=== PATIENT | male | born 1990 ===

== ENCOUNTER 2021-10-01 01:11 | Inpatient (IN) | payer SELFPAY ==
[2021-10-01] VITALS (17 sets, daily range): BP systolic 107–229; BP diastolic 67–127
[~2021-10-01] VITALS: Ht 165 cm; Wt 73.2 kg
[2021-10-01] MEDS ORDERED: LACTATED RINGERS 1,000 ML IV ONE (02:00)
[2021-10-01] MEDS ORDERED: KETOROLAC 30 MG/ML VIAL IVP ONE (02:00)
--- NOTE | 2021-10-01 02:02 | ED General ---
General Stated Complaint: VEGAS,COUGH,BACK PAIN,ABD PAIN Source of Information: Patient Exam Limitations: Language Barrier (Family member providing interpretation services) History of Present Illness Date Seen by Provider: Oct 01, 2021 Time Seen by Provider: 01:36 Initial Comments Patient presents ER by private conveyance with his significant other and chief complaint that for the past 3 days has had progressive chills, fever subjective, body aches low back pain sore throat. He has not seen anyone for this. He is a type I diabetic on insulin. Last blood sugar last night was 133. He is not having urinary frequency or dysuria or dyspareunia. No discharge. No diarrhea or constipation. No known sick contacts. No COVID-19 vaccination. He has not take anything for the pain Allergies and Home Medications Allergies Coded Allergies: No Known Drug Allergies (Unverified , 10/01/21) Patient Home Medication List Home Medication List Reviewed: Yes Review of Systems Review of Systems Constitutional: chills; No diaphoresis; fever, malaise EENTM: No ear discharge, No ear pain Respiratory: cough (Occasional dry); No phlegm; short of breath Cardiovascular: No chest pain, No edema, No palpitations Gastrointestinal: No abdominal pain, No constipation, No diarrhea, No nausea, No vomiting Genitourinary: No discharge, No dysuria Musculoskeletal: see HPI, back pain; No joint pain All Other Systems Reviewed Negative Unless Noted: Yes Past Gbbayyd-Hgusyb-Babypz Hx Patient Social History Tobacco Use?: No Use of E-Cig and/or Vaping dev: No Substance use?: No Alcohol Use?: No Physical Exam Vital Signs Vital Signs - First Documented 10/01/21 01:40 Temp 38.3 Pulse 105 Resp 14 B/P (MAP) 152/96 (114) Pulse Ox 100 O2 Delivery Room Air Capillary Refill : Height, Weight, BMI Height: '" Weight: lbs. oz. kg; BMI Method: General Appearance: WD/WN, Moderate Distress Eyes: Bilateral Eye Normal Inspection, Bilateral Eye PERRL, Bilateral Eye EOMI HEENT: PERRL/EOMI, TMs Normal; No Moist Mucous Membranes, No Tonsillar Exudate Neck: Full Range of Motion, Normal Inspection, Non Tender, Supple Respiratory: Lungs Clear, Normal Breath Sounds, No Accessory Muscle Use, No Respiratory Distress (100% oxygen saturation on room air with nonlabored breathing) Cardiovascular: Regular Rate, Rhythm, Normal Peripheral Pulses, Tachycardia (105) Gastrointestinal: Normal Bowel Sounds, Non Tender, Soft Back: Normal Inspection, No CVA Tenderness, Other (Bilateral paravertebral lumbar and low thoracic spinal tenderness) Extremity: Normal Capillary Refill, Normal Inspection, No Pedal Edema Neurologic/Psychiatric: Alert, Oriented x3, No Motor/Sensory Deficits, Normal Mood/Affect Skin: Normal Color, Warm/Dry Focused Exam Sepsis Stage: Ruled Out Reason for ruling out sepsis: Could not find a source of a bacterial infection. Lactate Level 10/01/21 02:00: Lactic Acid Level 1.37 Lactic Acid Level Laboratory Tests Test 10/01/21 02:00 Lactic Acid Level 1.37 MMOL/L (0.50-2.00) Progress/Results/Core Measures Suspected Sepsis SIRS Temperature: Pulse: Respiratory Rate: Laboratory Tests 10/01/21 02:00: White Blood Count 8.0 Blood Pressure / Mean: 10/01/21 02:00: Lactic Acid Level 1.37 Laboratory Tests 10/01/21 02:00: Creatinine 2.66H, INR Comment 1.0, Platelet Count 222, Total Bilirubin 0.3 Results/Orders Lab Results Laboratory Tests Test 10/01/21 02:00 10/01/21 03:21 10/01/21 03:35 10/01/21 04:09 Range/Units White Blood Count 8.0 4.3-11.0 10^3/uL Red Blood Count 4.80 4.30-5.52 10^6/uL Hemoglobin 14.0 13.3-17.7 g/dL Hematocrit 41 40-54 % Mean Corpuscular Volume 85 80-99 fL Mean Corpuscular Hemoglobin 29 25-34 pg Mean Corpuscular Hemoglobin Concent 34 32-36 g/dL Red Cell Distribution Width 12.2 10.0-14.5 % Platelet Count 222 130-400 10^3/uL Mean Platelet Volume 10.0 9.0-12.2 fL Immature Granulocyte % (Auto) 0 % Neutrophils (%) (Auto) 68 42-75 % Lymphocytes (%) (Auto) 20 12-44 % Monocytes (%) (Auto) 12 0-12 % Eosinophils (%) (Auto) 0 0-10 % Basophils (%) (Auto) 1 0-10 % Neutrophils # (Auto) 5.4 1.8-7.8 10^3/uL Lymphocytes # (Auto) 1.6 1.0-4.0 10^3/uL Monocytes # (Auto) 0.9 0.0-1.0 10^3/uL Eosinophils # (Auto) 0.0 0.0-0.3 10^3/uL Basophils # (Auto) 0.0 0.0-0.1 10^3/uL Immature Granulocyte # (Auto) 0.0 0.0-0.1 10^3/uL Prothrombin Time 13.3 12.2-14.7 SEC INR Comment 1.0 0.8-1.4 Activated Partial Thromboplast Time 31 24-35 SEC D-Dimer < 0.27 0.00-0.49 UG/ML Sodium Level 134 L 135-145 MMOL/L Potassium Level 4.5 3.6-5.0 MMOL/L Chloride Level 105 98-107 MMOL/L Carbon Dioxide Level 16 L 21-32 MMOL/L Anion Gap 13 5-14 MMOL/L Blood Urea Nitrogen 35 H 7-18 MG/DL Creatinine 2.66 H 0.60-1.30 MG/DL Estimat Glomerular Filtration Rate 28 BUN/Creatinine Ratio 13 Glucose Level 332 H 70-105 MG/DL Lactic Acid Level 1.37 0.50-2.00 MMOL/L Calcium Level 8.5 8.5-10.1 MG/DL Corrected Calcium 9.1 8.5-10.1 MG/DL Total Bilirubin 0.3 0.1-1.0 MG/DL Aspartate Amino Transf (AST/SGOT) 18 5-34 U/L Alanine Aminotransferase (ALT/SGPT) 18 0-55 U/L Alkaline Phosphatase 120 40-136 U/L C-Reactive Protein High Sensitivity 0.47 0.00-0.50 MG/DL Total Protein 6.1 L 6.4-8.2 GM/DL Albumin 3.2 3.2-4.5 GM/DL Procalcitonin 0.10 H <0.10 NG/ML Influenza Type A (RT-PCR) Not Detected Not Detecte Influenza Type B (RT-PCR) Not Detected Not Detecte SARS-CoV-2 RNA (RT-PCR) Not Detected Not Detecte Urine Color YELLOW Urine Clarity CLEAR Urine pH 6.5 5-9 Urine Specific [place] 1.020 1.016-1.022 Urine Protein 3+ H NEGATIVE Urine Glucose (UA) 3+ H NEGATIVE Urine Ketones NEGATIVE NEGATIVE Urine Nitrite NEGATIVE NEGATIVE Urine Bilirubin NEGATIVE NEGATIVE Urine Urobilinogen 0.2 < = 1.0 MG/DL Urine Leukocyte Esterase NEGATIVE NEGATIVE Urine RBC (Auto) 2+ H NEGATIVE Urine RBC 10-25 H /HPF Urine WBC NONE /HPF Urine Crystals NONE /LPF Urine Bacteria TRACE /HPF Urine Casts NONE /LPF Urine Mucus NEGATIVE /LPF Urine Culture Indicated NO Glucometer 277 H 70-110 MG/DL My Orders Orders - RENATA HEADLEY Cbc With Automated Diff (10/01/21:55) Comprehensive Metabolic Panel (10/01/21:55) Blood Culture (10/01/21:55) Sputum Culture (10/01/21:55) Urinalysis (10/01/21:55) Urine Culture (10/01/21:55) Protime With Inr (10/01/21:55) Partial Thromboplastin Time (10/01/21:55) Chest 1 View, Ap/Pa Only (10/01/21:55) Ed Iv/Invasive Line Start (10/01/21:55) Ed Iv/Invasive Line Start (10/01/21 01:55) Vital Signs Adult Sepsis Patie Q15M (10/01/21:55) O2 (10/01/21:55) Remove Rings In Anticipation O (10/01/21:55) Lactic Acid Analyzer (10/01/21:55) Influenza A And B By Pcr (10/01/21:55) Lactated Ringers (Lr 1000 Ml Iv Solution (10/01/21 02:00) Covid 19 Inhouse Test (10/01/21 01:55) Ketorolac Injection (Toradol Injection) (10/01/21 02:00) Clonidine Tablet (Catapres Tablet) (10/01/21 02:30) Procalcitonin (Pct) (10/01/21 02:49) Hs C Reactive Protein (10/01/21 02:49) Fibrin Degradation Products (10/01/21 02:49) Ed Iv/Invasive Line Start (10/01/21 02:50) Ns Iv 1000 Ml (Sodium Chloride 0.9%) (10/01/21 03:00) Ct Abd/Pelvis Wo(Kidney Stone) (10/01/21 03:55) Accucheck Stat ONCE (10/01/21 04:06) Insulin Aspart (Novolog) (Novolog (Charg (10/01/21 04:15) Medications Given in ED Current Medications Medications Dose Ordered Sig/Ro Route Start Time Stop Time Status Last Admin Dose Admin Clonidine HCl 0.1 mg ONCE ONCE PO 10/01/21 02:30 10/01/21 02:31 DC 10/01/21 02:42 0.1 MG Insulin Aspart 5 unit ONCE ONCE SC 10/01/21 04:15 10/01/21 04:16 DC 10/01/21 04:37 5 UNIT Ketorolac Tromethamine 30 mg ONCE ONCE IVP 10/01/21 02:00 10/01/21 02:01 DC 10/01/21 02:11 30 MG Lactated Ringer's 1,000 ml @ 0 mls/hr Q0M ONCE IV 10/01/21 02:00 10/01/21 02:01 DC 10/01/21 02:11 0 MLS/HR Vital Signs/I&O 10/01/21 01:40 Temp 38.3 Pulse 105 Resp 14 B/P (MAP) 152/96 (114) Pulse Ox 100 O2 Delivery Room Air Capillary Refill : Progress Note #1: Time: 02:01 Progress Note Septic work-up based on his tachycardia and fever. Until we get his Covid and flu back negative we will be cautious with IV fluids and limit IV antibiotics. Urinalysis chest x-ray and a sputum. Toradol for his body aches and back pain. Differential includes viral, UTI, dehydration, less likely DKA. Progress Note #2: Time: 04:02 Progress Note The patient's pain has improved after Toradol from an 8 down to a 2 out of 10. He is not having any nausea right now. He does have a little bit of blood in his urine. He is acidotic without ketosis or a gap. Suspect he might be in HHS with or without a kidney stone. Plan to get a CT and talked about a stay in the hospital to help get his blood sugars back under control and he is okay with this plan peer Diagnostic Imaging Diagonstic Imaging: Xray Plain Films/CT/US/NM/MRI: chest Comments No acute cardiopulmonary process on 1 view chest x-ray. [facility] [place], [place] NAME: THANIA JIMENEZ [facility] REC#: [id number] PT STATUS: ADM Georgina : 1990 PHYSICIAN: RENATA HEADLEY MD ADMIT DATE: 10/01/21/ICU Draft Date of Exam:10/01/21 CHEST 1 VIEW, AP/PA ONLY INDICATION: Sepsis Portable AP view of the chest is obtained. COMPARISON: No previous study is available for comparison at this time. FINDINGS: Heart size and pulmonary vasculature are within normal limits, and the lungs are clear, bilaterally. IMPRESSION: Unremarkable chest. Dictated on workstation # [id number] Dict: 10/01/21 0535 Trans: 10/01/21 0539 [facility] [id number] Interpreted by: SEBAS BOBO MD Electronically signed by: Reviewed: Reviewed by Me Diagonstic Imaging: CT (Without IV contrast, kidney stone study) Plain Films/CT/US/NM/MRI: abdomen, pelvis Comments [facility] [place] [place] NAME: THANIA JIMENEZ [facility] REC#: [id number] PT STATUS: REG ER : 1990 PHYSICIAN: RENATA HEADLEY MD ADMIT DATE: 10/01/21/ER Signed Date of Exam:10/01/21 CT ABD/PELVIS WO(KIDNEY STONE) PROCEDURE: CT urinary tract, rule out kidney stone. TECHNIQUE: Multiple contiguous axial images were obtained through the abdomen and pelvis without the use of intravenous contrast. Auto Exposure Controls were utilized during the CT exam to meet ALARA standards for radiation dose reduction. INDICATION: Low back pain, fever, body aches and cough There is minimal patchy groundglass density seen on the uppermost image located in the lower lobe of the left lung. There is of questionable significance. Below the diaphragm, unenhanced images of the liver, gallbladder, pancreas and adrenal glands are unremarkable. There is no evidence of biliary ductal dilatation. Unenhanced kidneys are unremarkable in appearance. There is no evidence of urinary tract calculus or obstruction although note is made of calcification within the seminal vesicles, bilaterally. There is no evidence of appendiceal region inflammation. No bladder filling defect is appreciated. No pathologically enlarged adenopathy is seen. IMPRESSION: No evidence of obstructive uropathy or other definite acute abnormality within the abdomen or pelvis. There is incompletely evaluated patchy groundglass density in the lower lobe of the left lung which could represent pneumonitis. Incidental note is made of bilateral seminal vesicle calcification. Dictated by: Dictated on workstation # [id number] Dict: 10/01/21430 Trans: 10/01/21434 [id number] Interpreted by: SEBAS BOBO MD Electronically signed by: SEBAS BOBO MD 10/01/21434 Reviewed: [facility]ed [facility], Reviewed by Me Departure Communication (Admissions) Time/Spoke to Admitting Phy: 04:45 Discussed the case with Dr. Moser and she agrees with putting the patient on the ICU for an insulin drip. Impression Primary Impression: Type 1 diabetes mellitus with hyperosmolar hyperglycemic state (HHS) Additional Impressions: Acute viral syndrome Hematuria, microscopic YANELI (acute kidney injury) Disposition: ADMITTED INPATIENT Condition: Stable Admissions Decision to Admit Reason: Admit from ER (General) Decision to Admit/Date: Oct 01, 2021 Time/Decision to Admit Time: 04:45 Departure-Patient Inst. Referrals: [facility] (PCP/Family) Primary Care Physician RENATA HEADLEY Oct 01, 2021 02:02
[2021-10-01 02:20] LABS: BASOPHILS % (AUTO) 1 % (0-10); EOSINOPHILS % (AUTO) 0 % (0-10); HEMATOCRIT 41 % (40-54); LYMPHOCYTES # (AUTO) 1.6 10^3/uL (1.0-4.0); LYMPHOCYTES % (AUTO) 20 % (12-44); MEAN CORPUSCULAR HEMOGLOBIN 29 pg (25-34); MEAN CORPUSCULAR HGB CONC 34 g/dL (32-36); MEAN CORPUSCULAR VOLUME 85 fL (80-99); MONOCYTES # (AUTO) 0.9 10^3/uL (0.0-1.0); MONOCYTES % (AUTO) 12 % (0-12); NEUTROPHILS # (AUTO) 5.4 10^3/uL (1.8-7.8); NEUTROPHILS % (AUTO) 68 % (42-75); PLATELET COUNT 222 10^3/uL (130-400)
[2021-10-01] MEDS ORDERED: cloNIDine 0.1 MG (CATAPRES) TAB PO ONE (02:30)
[2021-10-01 02:31] LABS: ALBUMIN 3.2 GM/DL (3.2-4.5); POTASSIUM 4.5 MMOL/L (3.6-5.0)
[2021-10-01 02:32] LABS: CALCIUM 8.5 MG/DL (8.5-10.1)
[2021-10-01 02:34] LABS: TOTAL PROTEIN 6.1 GM/DL (6.4-8.2)
[2021-10-01 02:35] LABS: BILIRUBIN,TOTAL 0.3 MG/DL (0.1-1.0)
[2021-10-01 02:37] LABS: CREATININE SERUM 2.66 MG/DL (0.60-1.30)
[2021-10-01 02:38] LABS: PROTHROMBIN TIME PATIENT 13.3 SEC (12.2-14.7)
[2021-10-01] MEDS ORDERED: NS IV 1000 ML 1,000 ML IV SCH ×2 (03:00→05:45)
[2021-10-01 03:27] LABS: BILIRUBIN,URINE NEGATIVE (NEGATIVE); CLARITY,URINE CLEAR; COLOR,URINE YELLOW; GLUCOSE, URINE (UA) 3+ (NEGATIVE); KETONES,URINE NEGATIVE (NEGATIVE); LEUKOCYTE ESTERASE ,URINE NEGATIVE (NEGATIVE); NITRITE,URINE NEGATIVE (NEGATIVE); PH,URINE 6.5 (5-9); PROTEIN,URINE 3+ (NEGATIVE)
[2021-10-01 03:36] LABS: BACTERIA,URINE TRACE /HPF
[2021-10-01] MEDS ORDERED: inSUlin ASPART (NovoLOG) 1 UNIT/0.01 ML (CHARGE PER UNIT) SC ONE (04:15)
--- NOTE | 2021-10-01 04:36 | Diagnostic Imaging Report ---
PROCEDURE: CT urinary tract, rule out kidney stone. TECHNIQUE: Multiple contiguous axial images were obtained through the abdomen and pelvis without the use of intravenous contrast. Auto Exposure Controls were utilized during the CT exam to meet ALARA standards for radiation dose reduction. INDICATION: Low back pain, fever, body aches and cough There is minimal patchy groundglass density seen on the uppermost image located in the lower lobe of the left lung. There is of questionable significance. Below the diaphragm, unenhanced images of the liver, gallbladder, pancreas and adrenal glands are unremarkable. There is no evidence of biliary ductal dilatation. Unenhanced kidneys are unremarkable in appearance. There is no evidence of urinary tract calculus or obstruction although note is made of calcification within the seminal vesicles, bilaterally. There is no evidence of appendiceal region inflammation. No bladder filling defect is appreciated. No pathologically enlarged adenopathy is seen. IMPRESSION: No evidence of obstructive uropathy or other definite acute abnormality within the abdomen or pelvis. There is incompletely evaluated patchy groundglass density in the lower lobe of the left lung which could represent pneumonitis. Incidental note is made of bilateral seminal vesicle calcification. Dictated by: Dictated on workstation # [id number]
--- NOTE | 2021-10-01 05:39 | Diagnostic Imaging Report ---
INDICATION: Sepsis Portable AP view of the chest is obtained. COMPARISON: No previous study is available for comparison at this time. FINDINGS: Heart size and pulmonary vasculature are within normal limits, and the lungs are clear, bilaterally. IMPRESSION: Unremarkable chest. Dictated by: Dictated on workstation # [id number]
[2021-10-01] MEDS ORDERED: D5 1/2 NS 1000 ML IV SOLUTION 1,000 ML IV SCH (05:45)
--- NOTE | 2021-10-01 06:04 | Tele-ICU Consult ---
History of Present Illness History of Present Illness Date Seen by Provider: Oct 01, 2021 Time Seen by Provider: 06:00 Date of Admission Per ED note: Patient presents ER by private conveyance with his significant other and chief complaint that for the past 3 days has had progressive chills, fever subjective, body aches low back pain sore throat. He has not seen anyone for this. He is a type I diabetic on insulin. He is not having urinary frequency or dysuria or dyspareunia. No discharge. No diarrhea or constipation. No known sick contacts. No COVID-19 vaccination. Sepsis work up was initiated. Allergies and Home Medications Allergies Coded Allergies: No Known Drug Allergies (Unverified , 10/01/21) Past Medical/Social/Family Hx Patient Social History Tobacco Use?: No Use of E-Cig and/or Vaping dev: No Substance use?: No Alcohol Use?: No Pt stated abuse/neglect: No Immunizations Up To Date Influenza Vaccine Up-to-Date: No; Not Current First/Initial COVID19 Vaccinat: N/A Second COVID19 Vaccination Ferny: N/A Tetanus Booster (TDap): Unknown Hepatitis A: No Hepatitis B: No TB Skin Test: None Current Status Advance Directives: No Communicates: Verbally Primary Language: [place] Preferred Spoken Language: [place] Is interpretation needed?: Yes Implanted or Applied Medical D: None Past Medical History DM Review of Systems Constitutional: see HPI Sepsis Event Evaluation Sepsis Stage: Sepsis Possible Source: Pulmonary Height, Weight, BMI Height: '" Weight: lbs. oz. kg; 28.76 BMI Method: Exam Exam Patient acknowledged, consented, and participated in this virtual visit which was conducted using real time audio/video Vital Signs Date Time Temp Pulse Resp B/P (MAP) Pulse Ox O2 Delivery O2 Flow Rate FiO2 10/01/21 05:41 97 Room Air 10/01/21 05:35 36.0 75 12 127/85 (99) 97 Room Air 10/01/21 05:21 74 15 134/80 98 Room Air 10/01/21 01:40 38.3 105 14 152/96 (114) 100 Room Air I & O 10/01/21 07:00 Intake Total 2000 ml Output Total 0 ml Balance 2000 ml Height & Weight Height: '" Weight: lbs. oz. kg; 28.76 BMI Method: General Appearance: WD/WN, Moderate Distress HEENT: PERRL/EOMI, TMs Normal; No Moist Mucous Membranes, No Tonsillar Exudate Neck: Full Range of Motion, Normal Inspection, Non Tender, Supple Respiratory: Lungs Clear, Normal Breath Sounds, No Accessory Muscle Use, No Respiratory Distress (100% oxygen saturation on room air with nonlabored breathing) Cardiovascular: Regular Rate, Rhythm, Normal Peripheral Pulses, Tachycardia (105) Capillary Refill: Less Than 3 Seconds Extremity: Normal Capillary Refill, Normal Inspection, No Pedal Edema Neurologic/Psychiatric: Alert, Oriented x3, No Motor/Sensory Deficits, Normal Mood/Affect Skin: Normal Color, Warm/Dry Results Lab Laboratory Tests 10/01/21 02:00 Assessment/Plan Assessment/Plan Sepsis: possible source pna -iv fluids/ empiric abx/ panculture -2l (1l 0.9/ 1l LR) HHS iv fluids/ Insulin drip -abg/ follow labs DVT prophylaxis JOSEP MANCILLA MD Oct 01, 2021 06:04
[2021-10-01] MEDS: POTASSIUM CL 10MEQ/50ML IVPB 50 ML IV SCH ×2 (06:14→08:43)
[2021-10-01] MEDS: 1/2 NS IV SOLUTION 1,000 ML IV SCH ×3 (06:14→14:23)
[2021-10-01 06:37] LABS: ABG BASE EXCESS -2.4 MMOL/L (-2.5-2.5); ABG OXYGEN SATURATION 79 % (94-100); ABG PCO2 40 MMHG (35-45); ABG PH 7.36 (7.37-7.43); ABG PO2 49 MMHG (79-93); ABG TCO2 23.5 MMOL/L (21.0-31.0); ALLENS TEST YES-POS; PATIENT TEMP 36.8; VENTILATOR NO
[2021-10-01] MEDS ORDERED: VANCOMYCIN 1500 MG/NS 500 ML IVPB IV NR ×2 (07:00)
[2021-10-01] MEDS ORDERED: CEFEPIME 1,000 MG/SWFI 10 ML IV PUSH IV SCH ×2 (07:00)
[2021-10-01] MEDS: ACETAMINOPHEN 325 MG TABLET PO PRN ×3 (08:15→19:36)
[2021-10-01 08:35] LABS: POTASSIUM 3.8 MMOL/L (3.6-5.0)
[2021-10-01 08:36] LABS: CALCIUM 7.8 MG/DL (8.5-10.1)
[2021-10-01 08:40] LABS: CREATININE SERUM 2.42 MG/DL (0.60-1.30)
[2021-10-01] MEDS ORDERED: CEFEPIME INJECTION 2,000 MG in WATER (STERILE) FOR INJECTION 20 ML IV SCH (09:00)
[2021-10-01] MEDS ORDERED: INSU100V5 SQ (10:28)
[2021-10-01] MEDS ORDERED: INSU100V16 SQ (10:28)
--- NOTE | 2021-10-01 13:30 | History & Physical ---
HPI History of Present Illness: 31 yo M with DMI that presented with N/V and chills. Patient not in DKA but showing early signs. Denies that any other family members are sick. States that he has missed several doses of his insulin because he has not be eating and very nauseous. Abdominal pain is resolved this AM. States that he has started to have some coughing the last 2 days. Tested neg for covid and flu. Source: patient, spouse Exam Limitations: no limitations Date seen by provider: Oct 01, 2021 Time Seen by Provider: 09:15 Attending Physician Melia Moser MD PCP [place] [place] Consult Date of Admission Oct 01, 2021 at 04:56 Home Medications Home Medications Reviewed patient Home Medication Reconciliation performed by pharmacy medication reconciliations medical technician and/or nursing. Patients Allergies have been reviewed. Allergies Coded Allergies: No Known Drug Allergies (Unverified , 10/01/21) [id number] Hx Patient Social History Alcohol Use?: No Have you traveled recently?: No Past Medical History DM type I Review of Systems (CHC) Constitutional: chills; No fever; malaise EENTM: nose congestion; No mouth pain, No nose pain Respiratory: cough; No dyspnea on exertion, No short of breath Cardiovascular: no symptoms reported; No chest pain, No edema, No palpitations Gastrointestinal: no symptoms reported; No abdominal pain, No constipation, No diarrhea; loss of appetite, nausea, vomiting Genitourinary: no symptoms reported; No dysuria, No frequency, No hematuria Musculoskeletal: no symptoms reported; No back pain, No joint pain, No muscle pain Skin: no symptoms reported; No lesions, No rash Psychiatric/Neurological: Headache; Denies Numbness, Denies Weakness Reviewed Test Results Reviewed Test Results Lab Laboratory Tests Test 10/01/21 02:00 10/01/21 03:21 10/01/21 03:35 10/01/21 04:09 Range/Units White Blood Count 8.0 4.3-11.0 10^3/uL Red Blood Count 4.80 4.30-5.52 10^6/uL Hemoglobin 14.0 13.3-17.7 g/dL Hematocrit 41 40-54 % Mean Corpuscular Volume 85 80-99 fL Mean Corpuscular Hemoglobin 29 25-34 pg Mean Corpuscular Hemoglobin Concent 34 32-36 g/dL Red Cell Distribution Width 12.2 10.0-14.5 % Platelet Count 222 130-400 10^3/uL Mean Platelet Volume 10.0 9.0-12.2 fL Immature Granulocyte % (Auto) 0 % Neutrophils (%) (Auto) 68 42-75 % Lymphocytes (%) (Auto) 20 12-44 % Monocytes (%) (Auto) 12 0-12 % Eosinophils (%) (Auto) 0 0-10 % Basophils (%) (Auto) 1 0-10 % Neutrophils # (Auto) 5.4 1.8-7.8 10^3/uL Lymphocytes # (Auto) 1.6 1.0-4.0 10^3/uL Monocytes # (Auto) 0.9 0.0-1.0 10^3/uL Eosinophils # (Auto) 0.0 0.0-0.3 10^3/uL Basophils # (Auto) 0.0 0.0-0.1 10^3/uL Immature Granulocyte # (Auto) 0.0 0.0-0.1 10^3/uL Prothrombin Time 13.3 12.2-14.7 SEC INR Comment 1.0 0.8-1.4 Activated Partial Thromboplast Time 31 24-35 SEC D-Dimer < 0.27 0.00-0.49 UG/ML Sodium Level 134 L 135-145 MMOL/L Potassium Level 4.5 3.6-5.0 MMOL/L Chloride Level 105 98-107 MMOL/L Carbon Dioxide Level 16 L 21-32 MMOL/L Anion Gap 13 5-14 MMOL/L Blood Urea Nitrogen 35 H 7-18 MG/DL Creatinine 2.66 H 0.60-1.30 MG/DL Estimat Glomerular Filtration Rate 28 BUN/Creatinine Ratio 13 Glucose Level 332 H 70-105 MG/DL Lactic Acid Level 1.37 0.50-2.00 MMOL/L Calcium Level 8.5 8.5-10.1 MG/DL Corrected Calcium 9.1 8.5-10.1 MG/DL Total Bilirubin 0.3 0.1-1.0 MG/DL Aspartate Amino Transf (AST/SGOT) 18 5-34 U/L Alanine Aminotransferase (ALT/SGPT) 18 0-55 U/L Alkaline Phosphatase 120 40-136 U/L C-Reactive Protein High Sensitivity 0.47 0.00-0.50 MG/DL Total Protein 6.1 L 6.4-8.2 GM/DL Albumin 3.2 3.2-4.5 GM/DL Procalcitonin 0.10 H <0.10 NG/ML Influenza Type A (RT-PCR) Not Detected Not Detecte Influenza Type B (RT-PCR) Not Detected Not Detecte SARS-CoV-2 RNA (RT-PCR) Not Detected Not Detecte Urine Color YELLOW Urine Clarity CLEAR Urine pH 6.5 5-9 Urine Specific [place] 1.020 1.016-1.022 Urine Protein 3+ H NEGATIVE Urine Glucose (UA) 3+ H NEGATIVE Urine Ketones NEGATIVE NEGATIVE Urine Nitrite NEGATIVE NEGATIVE Urine Bilirubin NEGATIVE NEGATIVE Urine Urobilinogen 0.2 < = 1.0 MG/DL Urine Leukocyte Esterase NEGATIVE NEGATIVE Urine RBC (Auto) 2+ H NEGATIVE Urine RBC 10-25 H /HPF Urine WBC NONE /HPF Urine Crystals NONE /LPF Urine Bacteria TRACE /HPF Urine Casts NONE /LPF Urine Mucus NEGATIVE /LPF Urine Culture Indicated NO Glucometer 277 H 70-110 MG/DL Test 10/01/21 05:46 10/01/21 06:30 10/01/21 07:02 10/01/21 08:00 Range/Units Glucometer 235 H 161 H 70-110 MG/DL Blood Gas Puncture Site LT RAD Blood Gas Patient Temperature 36.8 Arterial Blood pH 7.36 L 7.37-7.43 Arterial Blood Partial Pressure CO2 40 35-45 MMHG Arterial Blood Partial Pressure O2 49 L 79-93 MMHG Arterial Blood HCO3 22 L 23-27 MMOL/L Arterial Blood Total CO2 23.5 21.0-31.0 MMOL/L Arterial Blood Oxygen Saturation 79 L 94-100 % Arterial Blood Base Excess -2.4 -2.5-2.5 MMOL/L Rudy Test YES-POS Blood Gas Ventilator Setting NO Blood Gas Inspired Oxygen UNK Sodium Level 138 135-145 MMOL/L Potassium Level 3.8 3.6-5.0 MMOL/L Chloride Level 109 H 98-107 MMOL/L Carbon Dioxide Level 20 L 21-32 MMOL/L Anion Gap 9 5-14 MMOL/L Blood Urea Nitrogen 31 H 7-18 MG/DL Creatinine 2.42 H 0.60-1.30 MG/DL Estimat Glomerular Filtration Rate 31 BUN/Creatinine Ratio 13 Glucose Level 154 H 70-105 MG/DL Lactic Acid Level 0.80 0.50-2.00 MMOL/L Calcium Level 7.8 L 8.5-10.1 MG/DL Beta-Hydroxybutyrate (Chem panel) 0.04 0.00-0.27 MMOL/L Test 10/01/21 08:01 10/01/21 10:42 10/01/21 15:16 10/01/21 20:30 Range/Units Glucometer 147 H 155 H 216 H 158 H 70-110 MG/DL Physical Exam-(CHC) Physical Exam Vital Signs VS - Last 72 Hours, by Label 10/01/21 10/01/21 10/01/21 10/01/21 01:40 05:21 05:34 05:35 Temp 38.3 36.0 Pulse 105 74 76 75 Resp 14 15 12 B/P (MAP) 152/96 (114) 134/80 127/85 (99) Pulse Ox 100 98 97 O2 Delivery Room Air Room Air Room Air 10/01/21 10/01/21 10/01/21 10/01/21 05:41 06:00 06:15 07:00 Pulse 77 73 80 Resp 18 15 B/P (MAP) 119/78 (92) 120/79 (93) Pulse Ox 97 98 97 O2 Delivery Room Air Room Air Room Air 10/01/21 10/01/21 10/01/21 10/01/21 07:00 07:50 07:50 08:00 Temp 36.4 Pulse 80 75 Resp 12 11 B/P (MAP) 107/76 (86) 133/72 (92) Pulse Ox 98 97 98 O2 Delivery Room Air Room Air Room Air 10/01/21 10/01/21 10/01/21 10/01/21 09:00 10:00 11:00 11:27 Pulse 76 75 70 Resp 17 16 14 B/P (MAP) 112/68 (83) 112/75 (87) 138/67 (90) Pulse Ox 97 O2 Delivery Room Air Room Air Room Air Room Air 10/01/21 10/01/21 10/01/21 10/01/21 12:00 12:08 13:00 15:19 Temp 36.7 37.1 Pulse 73 75 83 Resp 14 20 B/P (MAP) 153/103 (120) 229/127 (161) Pulse Ox 99 O2 Delivery Room Air Room Air 10/01/21 10/01/21 10/01/21 10/01/21 16:42 19:00 19:30 20:00 Temp 37.9 Pulse 83 98 Resp 23 B/P (MAP) 169/107 (127) 120/70 (87) Pulse Ox 98 O2 Delivery Room Air Room Air 10/01/21 10/01/21 20:28 20:28 Temp 38.4 38.4 Capillary Refill : Less Than 3 Seconds General Appearance: WD/WN, no apparent distress HEENT: PERRL/EOMI Neck: non-tender, full range of motion, supple Respiratory: chest non-tender, lungs clear, normal breath sounds, no respiratory distress, no accessory muscle use Cardiovascular: normal peripheral pulses, regular rate, rhythm, no edema, no murmur Gastrointestinal: normal bowel sounds, non tender, soft Back: no CVA tenderness Extremities: normal range of motion, non-tender, normal inspection, no pedal edema, no calf tenderness, normal capillary refill Neurologic/Psychiatric: rn surgery II-XII nml as tested, no motor/sensory deficits, alert, normal mood/affect, oriented x 3 Skin: normal color, warm/dry Lymphatic: no adenopathy Assessment/Plan Assessment/Plan Admission Status: Observation (1) Type 1 diabetes mellitus with hyperosmolar hyperglycemic state (HHS) Status: Acute Assessment & Plan: - Patient on Insulin gtts, will transition to sub cutaneous insulin, advance diet as tolerated (2) YANELI (acute kidney injury) Status: Acute Assessment & Plan: - Continue IVFs and monitor kidney function (3) Acute viral syndrome Status: Acute MELIA MOSER MD Oct 01, 2021 13:30
[2021-10-01] MEDS: BENZONATATE 100 MG (TESSALON) CAPSULE PO PRN ×2 (14:29→20:34)
[2021-10-01] MEDS: NS IV 1000 ML 1,000 ML IV SCH ×2 (14:30→23:00)
[2021-10-01] MEDS ORDERED: morphine INJ 10 MG/ML 1ML (SYR OR VIAL) IVP STA (15:17)
[2021-10-01] MEDS ORDERED: morphine INJ 4 MG/ML 1 ML (VIAL/SYRINGE) ONE (15:26)
[2021-10-01] MEDS: CEFEPIME 1,000 MG/NS 50 ML IVPB IV SCH ×4 (16:23→23:00)
[2021-10-01] MEDS: inSUlin ASPART (NovoLOG) 1 UNIT/0.01 ML (CHARGE PER UNIT) SC SCH ×2 (16:23→20:30)
[2021-10-01] MEDS: ENOXAPARIN 40 MG/0.4 ML (LOVENOX) SYR SQ SCH (16:23)
[2021-10-01] MEDS: ONDANSETRON 4 MG/2 ML (SDV) Z0FRAN IVP PRN (19:29)
[2021-10-01 21:14] LABS: POTASSIUM 4.2 MMOL/L (3.6-5.0)
[2021-10-01 21:15] LABS: CALCIUM 7.9 MG/DL (8.5-10.1)
[2021-10-01 21:20] LABS: CREATININE SERUM 2.29 MG/DL (0.60-1.30); PHOSPHORUS 2.9 MG/DL (2.3-4.7)
[2021-10-01 21:22] LABS: MAGNESIUM 1.5 MG/DL (1.6-2.4)
[2021-10-01] MEDS ORDERED: IBUPROFEN TABLET 200 MG TAB PO ONE ×2 (21:57→22:00)
[2021-10-01] MEDS ORDERED: MAGNESIUM 1 GM/100 ML IVPB 100 ML IV ONE (22:00)
[2021-10-01] MEDS: METOCLOPRAMIDE INJ 10 MG/2 ML (REGLAN) IVP SCH (23:00)
[2021-10-02] VITALS (25 sets, daily range): BP systolic 124–220; BP diastolic 77–128
[2021-10-02 05:08] LABS: BASOPHILS % (AUTO) 1 % (0-10); EOSINOPHILS # (AUTO) 0.1 10^3/uL (0.0-0.3); EOSINOPHILS % (AUTO) 1 % (0-10); HEMATOCRIT 38 % (40-54); HEMOGLOBIN 12.3 g/dL (13.3-17.7); LYMPHOCYTES # (AUTO) 1.6 10^3/uL (1.0-4.0); LYMPHOCYTES % (AUTO) 26 % (12-44); MEAN CORPUSCULAR HEMOGLOBIN 29 pg (25-34); MEAN CORPUSCULAR HGB CONC 33 g/dL (32-36); MEAN CORPUSCULAR VOLUME 87 fL (80-99); MEAN PLATELET VOLUME 10.2 fL (9.0-12.2); MONOCYTES # (AUTO) 0.7 10^3/uL (0.0-1.0); MONOCYTES % (AUTO) 11 % (0-12); NEUTROPHILS # (AUTO) 3.7 10^3/uL (1.8-7.8); NEUTROPHILS % (AUTO) 61 % (42-75); PLATELET COUNT 184 10^3/uL (130-400); WHITE BLOOD COUNT 6.1 10^3/uL (4.3-11.0)
[2021-10-02 05:12] LABS: ALBUMIN 2.6 GM/DL (3.2-4.5); POTASSIUM 4.5 MMOL/L (3.6-5.0)
[2021-10-02 05:14] LABS: CALCIUM 7.9 MG/DL (8.5-10.1)
[2021-10-02 05:15] LABS: TOTAL PROTEIN 5.3 GM/DL (6.4-8.2)
[2021-10-02] MEDS: inSUlin ASPART (NovoLOG) 1 UNIT/0.01 ML (CHARGE PER UNIT) SC SCH ×4 (05:16→20:06)
[2021-10-02 05:17] LABS: BILIRUBIN,TOTAL 0.2 MG/DL (0.1-1.0)
[2021-10-02 05:18] LABS: PHOSPHORUS 3.8 MG/DL (2.3-4.7)
[2021-10-02 05:19] LABS: CREATININE SERUM 2.2 MG/DL (0.60-1.30)
[2021-10-02] MEDS: METOCLOPRAMIDE INJ 10 MG/2 ML (REGLAN) IVP SCH ×3 (05:25→16:25)
[2021-10-02] MEDS: ACETAMINOPHEN 325 MG TABLET PO PRN ×2 (05:25→20:06)
[2021-10-02] MEDS: NS IV 1000 ML 1,000 ML IV SCH ×2 (05:25→13:42)
[2021-10-02] MEDS: CEFEPIME 1,000 MG/NS 50 ML IVPB IV SCH ×4 (08:07→17:03)
[2021-10-02] MEDS ORDERED: VANCOMYCIN INJECTION 1,250 MG in NS (IVPB) 250 ML IV SCH (09:00)
--- NOTE | 2021-10-02 10:45 | Tele-ICU Progress Note ---
Subjective Date Seen by a Provider: Oct 02, 2021 Time Seen by a Provider: 10:44 Sepsis Event Evaluation Height, Weight, BMI Height: '" Weight: lbs. oz. kg; 28.76 BMI Method: Focused Exam Lactate Level 10/01/21 02:00: Lactic Acid Level 1.37 10/01/21 08:00: Lactic Acid Level 0.80 Exam Exam Patient acknowledged, consented, and participated in this virtual visit which was conducted using real time audio/video Vital Signs Date Time Temp Pulse Resp B/P (MAP) Pulse Ox O2 Delivery O2 Flow Rate FiO2 10/02/21 09:13 Room Air 10/02/21 08:25 37.0 10/02/21 06:00 84 18 134/77 (96) Room Air 10/02/21 05:50 37.3 10/02/21 05:25 37.3 10/02/21 05:24 37.3 10/02/21 05:00 85 19 167/109 (128) Room Air 10/02/21 04:00 85 18 163/94 (117) Room Air 10/02/21 03:15 37.2 Room Air 10/02/21 03:00 76 15 165/108 (127) Room Air 10/02/21 02:00 93 23 135/89 (104) Room Air 10/02/21 01:08 37.0 10/02/21 01:00 83 10/02/21 01:00 83 17 124/80 (95) Room Air 10/02/21 00:00 89 17 134/77 (96) Room Air 10/01/21 23:00 92 23 128/79 (95) Room Air 10/01/21 22:56 38.9 10/01/21 22:30 38.8 10/01/21 22:00 100 19 163/93 (116) Room Air 10/01/21 21:58 38.8 10/01/21 21:47 38.8 10/01/21 21:00 93 18 151/94 (113) Room Air 10/01/21 20:28 38.4 10/01/21 20:28 38.4 10/01/21 20:00 96 24 142/92 (109) Room Air 10/01/21 20:00 98 Room Air 10/01/21 19:30 120/70 (87) Room Air 10/01/21 19:00 100 18 120/70 (87) Room Air 10/01/21 19:00 98 10/01/21 16:42 37.9 83 23 169/107 (127) 10/01/21 15:19 37.1 83 20 229/127 (161) 99 Room Air 10/01/21 13:00 75 10/01/21 12:08 36.7 10/01/21 12:00 73 14 153/103 (120) Room Air 10/01/21 11:27 Room Air 10/01/21 11:00 70 14 138/67 (90) Room Air I & O 10/02/21 07:00 Intake Total 3225 ml Output Total 3300 ml Balance -75 ml Height & Weight Height: '" Weight: lbs. oz. kg; 28.76 BMI Method: General Appearance: WD/WN, Moderate Distress HEENT: PERRL/EOMI, TMs Normal; No Moist Mucous Membranes, No Tonsillar Exudate Neck: Full Range of Motion, Normal Inspection, Non Tender, Supple Respiratory: Lungs Clear, Normal Breath Sounds, No Accessory Muscle Use, No Respiratory Distress (100% oxygen saturation on room air with nonlabored breathing) Cardiovascular: Regular Rate, Rhythm, Normal Peripheral Pulses, Tachycardia (105) Capillary Refill: Less Than 3 Seconds Gastrointestinal: normal bowel sounds, non tender, soft Extremity: Normal Capillary Refill, Normal Inspection, No Pedal Edema Neurologic/Psychiatric: Alert, Oriented x3, No Motor/Sensory Deficits, Normal Mood/Affect Skin: Normal Color, Warm/Dry Results Lab Laboratory Tests 10/01/21 02:00 10/01/21 08:00 10/01/21 20:55 10/02/21 04:36 Assessment/Plan Assessment/Plan (Tele-ICU Physician , Progress Note ) Available chart/ vitals / labs / Images reviewed Video assessment done using teleICU camera, rest of exam as per RN Discussed with RN , EXAM PER RN Events overnight : FEBRILE 37 FiO2 - ra I/O = pos 2 L Drips: Pressors: , hemodynamically stable A/P FEVER , Acute viral syndrome ? , poss PNA LLL - neg flu , covid neg - repeated pending - vanco / cefepime started on 10/01 - cx pending , sputum cx pending hyperglycemia - HHS/ DM I - improving , off insulin gtt - cont nsulin YANELI - improving with hydration - No evidence of obstructive uropathy on CT Lines : (Central Line Necessity Reviewed) Thomas: OG: Nutrition: Analgesia: Anxiety/ delirium VTE Prophylaxis: lovenox Stress Ulcer Prophylaxis: po Glycemic Control: Plans in collaboration with bedside consultants and IM MDs. Discussed with RN to reach out if any questions or concerns A total of 31 minutes of critical care time was devoted to this patient today, required to treat and/or prevent further deterioration of critical care condition ( as above) . KYRA FRANCIS MD Oct 02, 2021 10:45
[2021-10-02] MEDS ORDERED: ACETAMINOPHEN 500 MG TAB (TYLENOL) ONE (11:16)
[2021-10-02] MEDS ORDERED: ACETAMINOPHEN 500 MG TAB (TYLENOL) PO ONE (11:30)
[2021-10-02] MEDS: ONDANSETRON 4 MG/2 ML (SDV) Z0FRAN IVP PRN (11:32)
[2021-10-02] MEDS: hydrALAZINE (APESOLINE) 20 MG/ML VIAL IV PRN ×2 (11:37→16:23)
[2021-10-02] MEDS ORDERED: inSUlin ASPART (NovoLOG) 1 UNIT/0.01 ML (CHARGE PER UNIT) SQ SCH (12:00)
[2021-10-02 12:40] LABS: BASOPHILS % (AUTO) 0 % (0-10); EOSINOPHILS % (AUTO) 0 % (0-10); HEMATOCRIT 36 % (40-54); HEMOGLOBIN 12.1 g/dL (13.3-17.7); LYMPHOCYTES # (AUTO) 0.7 10^3/uL (1.0-4.0); LYMPHOCYTES % (AUTO) 14 % (12-44); MEAN CORPUSCULAR HEMOGLOBIN 29 pg (25-34); MEAN CORPUSCULAR HGB CONC 34 g/dL (32-36); MEAN CORPUSCULAR VOLUME 85 fL (80-99); MEAN PLATELET VOLUME 9.6 fL (9.0-12.2); MONOCYTES # (AUTO) 0.5 10^3/uL (0.0-1.0); MONOCYTES % (AUTO) 9 % (0-12); NEUTROPHILS # (AUTO) 4.1 10^3/uL (1.8-7.8); NEUTROPHILS % (AUTO) 77 % (42-75); PLATELET COUNT 168 10^3/uL (130-400); WHITE BLOOD COUNT 5.4 10^3/uL (4.3-11.0)
[2021-10-02 13:08] LABS: ALBUMIN 2.8 GM/DL (3.2-4.5); BILIRUBIN,DIRECT 0.1 MG/DL (0.0-0.3); BILIRUBIN,INDIRECT 0.2 MG/DL; BILIRUBIN,TOTAL 0.3 MG/DL (0.1-1.0); TOTAL PROTEIN 5.4 GM/DL (6.4-8.2)
[2021-10-02] MEDS: ENOXAPARIN 40 MG/0.4 ML (LOVENOX) SYR SQ SCH (13:42)
[2021-10-02] MEDS ORDERED: MEPERIDINE (DEMEROL) INJ 50 MG/ML ONE (16:59)
[2021-10-02] MEDS ORDERED: amLODIPine 5 MG (NORVASC) TAB PO ONE (17:00)
[2021-10-02] MEDS: MEPERIDINE (DEMEROL) INJ 50 MG/ML IVP PRN (17:04)
[2021-10-02] MEDS ORDERED: amLODIPine 5 MG (NORVASC) TAB ONE (17:11)
[2021-10-02 17:26] LABS: POTASSIUM 4.1 MMOL/L (3.6-5.0)
[2021-10-02 17:32] LABS: CREATININE SERUM 1.88 MG/DL (0.60-1.30)
[2021-10-02 17:34] LABS: MAGNESIUM 1.7 MG/DL (1.6-2.4)
[2021-10-02] MEDS ORDERED: hydrALAZINE (APESOLINE) 20 MG/ML VIAL IV NR (18:00)
[2021-10-02] MEDS ORDERED: meTOprolol 5 MG/5 ML (LOPRESSOR) VIAL IV NR (18:00)
--- NOTE | 2021-10-02 19:16 | Progress Note ---
Subjective Subjective/Events-last exam Patient continues to have nausea and fevers with cough. Re swabbed for Covid and new blood cultures collected. He is having chills. Review of Systems General: Chills, Fatigue Pulmonary: Cough Cardiovascular: No: Chest Pain, Palpitations Gastrointestinal: Nausea, Abdominal Pain; No: Vomiting Neurological: Weakness Focused Exam Lactate Level 10/01/21 02:00: Lactic Acid Level 1.37 10/01/21 08:00: Lactic Acid Level 0.80 10/02/21 17:05: Lactic Acid Level 0.76 Lactic Acid Level Laboratory Tests Test 10/02/21 17:05 Lactic Acid Level 0.76 MMOL/L (0.50-2.00) Objective Exam Last Set of Vital Signs Vital Signs Date Time Temp Pulse Resp B/P (MAP) Pulse Ox O2 Delivery O2 Flow Rate FiO2 10/02/21 18:55 37.6 10/02/21 18:30 95 23 169/103 (125) 98 Room Air Capillary Refill : Less Than 3 Seconds I&O Intake and Output 10/02/21 00:00 Intake Total 3850 ml Output Total 2250 ml Balance 1600 ml Intake Oral 1050 ml IV Total 2800 ml Output Urine Total 2250 ml Daily Weight Change No General: Alert, Oriented X3, Mild Distress (chills) Lungs: Clear to Auscultation, Normal Air Movement Heart: Regular Rate, No Murmurs Abdomen: Normal Bowel Sounds, Soft, Other (mild diffuse tenderness) Extremities: No Edema, No Tenderness/Swelling Neuro: Normal Speech, Sensation Intact, Cranial Nerves 3-12 NL Results/Procedures Lab Laboratory Tests 10/01/21 20:30: Glucometer 158H 10/01/21 20:55: Sodium Level 137, Potassium Level 4.2, Chloride Level 110H, Carbon Dioxide Level 18L, Anion Gap 9, Blood Urea Nitrogen 31H, Creatinine 2.29H, Estimat Glomerular Filtration Rate 33, BUN/Creatinine Ratio 14, Glucose Level 174H, Calcium Level 7.9L, Phosphorus Level 2.9, Magnesium Level 1.5L 10/02/21 04:36: Sodium Level 138, Potassium Level 4.5, Chloride Level 111H, Carbon Dioxide Level 17L, Anion Gap 10, Blood Urea Nitrogen 30H, Creatinine 2.20H, Estimat Glomerular Filtration Rate 35, BUN/Creatinine Ratio 14, Glucose Level 145H, Calcium Level 7.9L, Phosphorus Level 3.8, Magnesium Level 2.0, White Blood Count 6.1, Red Blood Count 4.30, Hemoglobin 12.3L, Hematocrit 38L, Mean Corpuscular Volume 87, Mean Corpuscular Hemoglobin 29, Mean Corpuscular Hemoglobin Concent 33, Red Cell Distribution Width 12.3, Platelet Count 184, Mean Platelet Volume 10.2, Immature Granulocyte % (Auto) 1, Neutrophils (%) (Auto) 61, Lymphocytes (%) (Auto) 26, Monocytes (%) (Auto) 11, Eosinophils (%) (Auto) 1, Basophils (%) (Auto) 1, Neutrophils # (Auto) 3.7, Lymphocytes # (Auto) 1.6, Monocytes # (Auto) 0.7, Eosinophils # (Auto) 0.1, Basophils # (Auto) 0.0, Immature Granulocyte # (Auto) 0.0, Corrected Calcium 9.0, Total Bilirubin 0.2, Aspartate Amino Transf (AST/SGOT) 20, Alanine Aminotransferase (ALT/SGPT) 15, Alkaline Phosphatase 98, Total Protein 5.3L, Albumin 2.6L, Beta-Hydroxybutyrate (Chem panel) 0.10 10/02/21 08:20: SARS-CoV-2 RNA (RT-PCR) Not Detected 10/02/21 10:37: Glucometer 140H 10/02/21 11:40: 10/02/21 12:35: White Blood Count 5.4, Red Blood Count 4.19L, Hemoglobin 12.1L, Hematocrit 36L, Mean Corpuscular Volume 85, Mean Corpuscular Hemoglobin 29, Mean Corpuscular Hemoglobin Concent 34, Red Cell Distribution Width 12.4, Platelet Count 168, Me an Platelet Volume 9.6, Immature Granulocyte % (Auto) 0, Neutrophils (%) (Auto) 77H, Lymphocytes (%) (Auto) 14, Monocytes (%) (Auto) 9, Eosinophils (%) (Auto) 0, Basophils (%) (Auto) 0, Neutrophils # (Auto) 4.1, Lymphocytes # (Auto) 0.7L, Monocytes # (Auto) 0.5, Eosinophils # (Auto) 0.0, Basophils # (Auto) 0.0, Immature Granulocyte # (Auto) 0.0, Total Bilirubin 0.3, Direct Bilirubin 0.1, Indirect Bilirubin 0.2, Aspartate Amino Transf (AST/SGOT) 17, Alanine Aminotran sferase (ALT/SGPT) 13, Alkaline Phosphatase 96, Total Protein 5.4L, Albumin 2.8L , Beta-Hydroxybutyrate (Chem panel) 0.63H, Monoscreen NEGATIVE 10/02/21 14:40: Group A Streptococcus Screen NEGATIVE 10/02/21 16:21: Glucometer 141H 10/02/21 17:05: Sodium Level 139, Potassium Level 4.1, Chloride Level 113H, Carbon Dioxide Level 15L, Anion Gap 11, Blood Urea Nitrogen 26H, Creatinine 1.88H, Estimat Glomerular Filtration Rate 42, BUN/Creatinine Ratio 14, Glucose Level 148H, Lactic Acid Level 0.76, Calcium Level 8.0L, Magnesium Level 1.7, Lactate Dehydrogenase 230H, Lipase 18 Microbiology 10/01/21 Blood Culture - Preliminary, Resulted No growth 10/01/21 MRSA Screen - Final, Complete MRSA not isolated 10/01/21 Urine Culture - Final, Complete >=3 Gram Positive Isolates Assessment/Plan Assessment/Plan (1) Type 1 diabetes mellitus with hyperosmolar hyperglycemic state (HHS) Status: Acute Assessment & Plan: - Patient on Insulin gtts, will transition to sub cutaneous insulin, advance diet as tolerated (2) YANELI (acute kidney injury) Status: Acute Assessment & Plan: - Continue IVFs and monitor kidney function 10/02: Unable to find chart at [facility] to get baseline Cr, Cr trending down, will continue to monitor and renally dose medications (3) Fever and chills Status: Acute Assessment & Plan: 10/02: Unsure of source, Respiratory viral panel pending, new blood cultures ordered (4) HTN (hypertension) Status: Acute Assessment & Plan: 10/02: Started Norvasc and added PRN Hydralazine MELIA AYALA MD Oct 02, 2021 19:16
[2021-10-03] VITALS (23 sets, daily range): BP systolic 104–193; BP diastolic 70–119
[2021-10-03] MEDS: METOCLOPRAMIDE INJ 10 MG/2 ML (REGLAN) IVP SCH ×4 (00:15→18:42)
[2021-10-03] MEDS: CEFEPIME 1,000 MG/NS 50 ML IVPB IV SCH ×6 (00:15→14:50)
[2021-10-03] MEDS: NS IV 1000 ML 1,000 ML IV SCH ×2 (00:16→15:04)
[2021-10-03] MEDS: hydrALAZINE (APESOLINE) 20 MG/ML VIAL IV PRN ×2 (00:17→07:33)
[2021-10-03] MEDS: ACETAMINOPHEN 325 MG TABLET PO PRN (01:32)
[2021-10-03 05:33] LABS: BASOPHILS % (AUTO) 0 % (0-10); EOSINOPHILS % (AUTO) 0 % (0-10); HEMATOCRIT 38 % (40-54); HEMOGLOBIN 12.8 g/dL (13.3-17.7); LYMPHOCYTES # (AUTO) 1.2 10^3/uL (1.0-4.0); LYMPHOCYTES % (AUTO) 18 % (12-44); MEAN CORPUSCULAR HEMOGLOBIN 29 pg (25-34); MEAN CORPUSCULAR HGB CONC 34 g/dL (32-36); MEAN CORPUSCULAR VOLUME 86 fL (80-99); MEAN PLATELET VOLUME 10.2 fL (9.0-12.2); MONOCYTES # (AUTO) 0.5 10^3/uL (0.0-1.0); MONOCYTES % (AUTO) 7 % (0-12); NEUTROPHILS # (AUTO) 5.2 10^3/uL (1.8-7.8); NEUTROPHILS % (AUTO) 74 % (42-75); PLATELET COUNT 172 10^3/uL (130-400)
[2021-10-03 05:50] LABS: ALBUMIN 2.8 GM/DL (3.2-4.5)
[2021-10-03 05:51] LABS: POTASSIUM 4.3 MMOL/L (3.6-5.0)
[2021-10-03 05:52] LABS: CALCIUM 8.2 MG/DL (8.5-10.1)
[2021-10-03 05:53] LABS: TOTAL PROTEIN 5.5 GM/DL (6.4-8.2)
[2021-10-03 05:55] LABS: BILIRUBIN,TOTAL 0.3 MG/DL (0.1-1.0)
[2021-10-03 05:56] LABS: PHOSPHORUS 4.4 MG/DL (2.3-4.7)
[2021-10-03 05:57] LABS: CREATININE SERUM 2.01 MG/DL (0.60-1.30)
[2021-10-03 06:00] LABS: MAGNESIUM 1.8 MG/DL (1.6-2.4)
[2021-10-03] MEDS: inSUlin ASPART (NovoLOG) 1 UNIT/0.01 ML (CHARGE PER UNIT) SC SCH ×4 (06:01→20:47)
--- NOTE | 2021-10-03 06:56 | Diagnostic Imaging Report ---
Indication: Respiratory distress. Compared: 10/01/2021 Findings: Lungs are clear. No failure, effusion or pneumothorax. Impression: Stable negative frontal chest. Dictated by: Dictated on workstation # [id number]
[2021-10-03] MEDS: amLODIPine 5 MG (NORVASC) TAB PO SCH (07:32)
[2021-10-03] MEDS: MEPERIDINE (DEMEROL) INJ 50 MG/ML IVP PRN (07:33)
[2021-10-03] MEDS ORDERED: TROUGH ORDER-PHARMACY XX NR (08:00)
[2021-10-03] MEDS ORDERED: VANCOMYCIN INJECTION 1,250 MG in NS (IVPB) 250 ML IV SCH (09:00)
[2021-10-03] MEDS: ONDANSETRON 4 MG/2 ML (SDV) Z0FRAN IVP PRN (09:56)
[2021-10-03] MEDS ORDERED: LABETALOL HCL 20 MG/4 ML VIAL IV PRN (10:00)
--- NOTE | 2021-10-03 10:20 | Tele-ICU Progress Note ---
Subjective Date Seen by a Provider: Oct 03, 2021 Time Seen by a Provider: 10:19 Subjective/Events-last exam He came with uncontrolled diabetes mellitus, uncontrolled hypertension and a fever. So far the cultures are negative and despite giving broad-spectrum antibiotic he continued to spike fever. His blood pressure is also high requiring frequent IV antihypertensive medications. Currently he is only on amlodipine 5 mg once a day orally. He is putting out a lot of urine. The way his blood pressure is fluctuating and concerned about pheochromocytoma and also an occult infectious focus. His CT of the abdomen did not reveal any acute changes. However on the left adrenal gland there is a slight swelling which is not no reported on the CT of the abdomen. However I would like to have a clear CT of the adrenals to 2 evaluate to see whether he had any pheochromocytoma. Review of Systems General: Chills ros per attending physician Sepsis Event Evaluation Height, Weight, BMI Height: '" Weight: lbs. oz. kg; 28.76 BMI Method: Focused Exam Lactate Level 10/01/21 02:00: Lactic Acid Level 1.37 10/01/21 08:00: Lactic Acid Level 0.80 10/02/21 17:05: Lactic Acid Level 0.76 Exam Exam Patient acknowledged, consented, and participated in this virtual visit which was conducted using real time audio/video Vital Signs Date Time Temp Pulse Resp B/P (MAP) Pulse Ox O2 Delivery O2 Flow Rate FiO2 10/03/21 09:45 37.2 10/03/21 09:00 107 18 167/112 (128) 92 Room Air 10/03/21 08:00 37.9 10/03/21 08:00 103 16 155/103 (120) 10/03/21 07:30 Room Air 10/03/21 07:00 103 15 169/107 (127) 95 Room Air 10/03/21 07:00 104 10/03/21 06:04 37.1 10/03/21 06:04 104 19 156/106 (123) 98 Room Air 10/03/21 05:00 105 18 147/98 (114) Room Air 10/03/21 04:00 105 17 133/90 (104) Room Air 10/03/21 03:50 38.2 10/03/21 03:00 104 17 149/95 (113) Room Air 10/03/21 02:00 109 20 152/95 (114) Room Air 10/03/21 01:00 111 21 181/99 (126) Room Air 10/03/21 01:00 111 10/03/21 00:00 102 20 193/119 (143) 98 Room Air 10/02/21 23:11 37.9 10/02/21 23:00 99 16 171/109 (129) 98 Room Air 10/02/21 22:00 102 18 149/90 (109) 98 Room Air 10/02/21 21:00 Room Air 10/02/21 21:00 106 16 164/100 (121) 97 Room Air 10/02/21 20:00 109 20 169/100 (123) 98 Room Air 10/02/21 19:54 37.9 10/02/21 19:00 103 10/02/21 19:00 103 27 175/98 (123) 98 Room Air 10/02/21 18:55 37.6 10/02/21 18:30 95 23 169/103 (125) 98 Room Air 10/02/21 18:15 110 18 206/115 (145) 98 Room Air 10/02/21 18:15 39.7 10/02/21 18:00 110 23 203/116 (145) 97 Room Air 10/02/21 17:45 123 28 220/128 (158) 100 Room Air 10/02/21 17:30 109 20 192/115 (147) 100 Room Air 10/02/21 17:15 108 22 191/117 (144) 98 Room Air 10/02/21 17:00 112 28 191/117 (141) 99 Room Air 10/02/21 17:00 39.2 10/02/21 16:45 109 23 173/107 (131) 71 Room Air 10/02/21 16:30 112 23 187/120 (134) 99 Room Air 10/02/21 16:30 112 20 173/107 (129) 100 Room Air 10/02/21 16:15 106 23 188/113 (138) 97 Room Air 10/02/21 16:00 37.9 10/02/21 16:00 102 17 188/113 (138) 100 Room Air 10/02/21 13:00 100 10/02/21 12:47 37.2 10/02/21 12:45 37.4 10/02/21 12:02 38.2 10/02/21 12:00 106 22 156/99 (118) 98 Room Air 10/02/21 11:55 39.3 10/02/21 11:28 39.2 10/02/21 11:25 39.2 I & O 10/03/21 07:00 Intake Total 2062.5 ml Output Total 2800 ml Balance -737.5 ml Height & Weight Height: '" Weight: lbs. oz. kg; 28.76 BMI Method: General Appearance: WD/WN, Moderate Distress HEENT: PERRL/EOMI, TMs Normal; No Moist Mucous Membranes, No Tonsillar Exudate Neck: Full Range of Motion, Normal Inspection, Non Tender, Supple Respiratory: Lungs Clear, Normal Breath Sounds, No Accessory Muscle Use, No Respiratory Distress (100% oxygen saturation on room air with nonlabored breathing) Cardiovascular: Regular Rate, Rhythm, Normal Peripheral Pulses, Tachycardia (105) Capillary Refill: Less Than 3 Seconds Gastrointestinal: normal bowel sounds, non tender, soft Extremity: Normal Capillary Refill, Normal Inspection, No Pedal Edema Neurologic/Psychiatric: Alert, Oriented x3, No Motor/Sensory Deficits, Normal Mood/Affect Skin: Normal Color, Warm/Dry Other comments pe per attending Results Lab Laboratory Tests 10/01/21 20:55 10/02/21 04:36 10/02/21 12:35 10/02/21 17:05 10/03/21 05:[address] of abdomen and pelvis, cr reviewed Assessment/Plan Assessment/Plan 1. Hyperosmolar nonketotic diabetes mellitus. Improving. 2. Fever of undetermined origin 3. Uncontrolled hypertension, rule out pheochromocytoma 4. Polyuria. Recommendations 1. We will continue IV antibiotics and insulin per primary care physician 2. We will get a WBC scan 3. We will get a thin cut CT of the abdomen particularly adrenals to rule out any pheochromocytoma, without contrast. 4. Echocardiogram will be done 5. Urine and plasma metanephrine will be ordered. 6. I will add carvedilol 12.5 mg p.o. twice daily and labetalol 20 mg IV as needed every 4 hours for systolic over 160. 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 Critical Care: Critically Ill Patient KAMRON NAVARRO MD Oct 03, 2021 10:20
--- NOTE | 2021-10-03 11:19 | Diagnostic Imaging Report ---
PROCEDURE: CT urinary tract, rule out kidney stone. TECHNIQUE: Multiple contiguous axial images were obtained through the abdomen and pelvis without the use of intravenous contrast. Auto Exposure Controls were utilized during the CT exam to meet ALARA standards for radiation dose reduction. INDICATION: Flank pain. Evaluation for kidney stone. COMPARISON: CT scan of 10/01/2021. FINDINGS: Patchy alveolar infiltrate left lower lung has increased in density since previous exam. Right lung base remains clear. No renal or ureteral calculi are seen. No hydronephrosis. Renal outlines are smooth. Ureters appear normal throughout their course. There is a calcification of the seminal vesicles. Also calcification in the prostate. Bladder is not distended. There is a considerable stool burden present from the cecum to the rectum.. Appendix is visualized. No bony abnormalities. IMPRESSION: 1. Increasing infiltrate left lower lobe. 2. No findings to suggest kidney stones or obstructive uropathy. 3. Findings consistent with moderate constipation. Dictated by: Dictated on workstation # [id number]
[2021-10-03] MEDS: ENOXAPARIN 40 MG/0.4 ML (LOVENOX) SYR SQ SCH (14:50)
[2021-10-03 15:05] LABS: PARAINFLU 1 PCR Not Detected (Not Detected); PARAINFLU 2 PCR Detected (Not Detected); RSV PCR TEST Not Detected (Not Detected)
--- NOTE | 2021-10-03 16:25 | Progress Note ---
Subjective Subjective/Events-last exam Patient states that he feels some better. Still having fevers and elevated blood pressures Review of Systems General: Chills, Fatigue, Malaise Pulmonary: No Dyspnea, No Cough Cardiovascular: No: Chest Pain, Palpitations, Edema Gastrointestinal: Nausea, Vomiting, Abdominal Pain Neurological: Weakness, Incoordination Focused Exam Lactate Level 10/01/21 02:00: Lactic Acid Level 1.37 10/01/21 08:00: Lactic Acid Level 0.80 10/02/21 17:05: Lactic Acid Level 0.76 Objective Exam Last Set of Vital Signs Vital Signs Date Time Temp Pulse Resp B/P (MAP) Pulse Ox O2 Delivery O2 Flow Rate FiO2 10/03/21 16:17 37.4 10/03/21 16:00 105 15 142/91 (108) 99 Room Air Capillary Refill : Less Than 3 Seconds I&O Intake and Output 10/03/21 00:00 Intake Total 3337.5 ml Output Total 2950 ml Balance 387.5 ml Intake Oral 1025 ml IV Total 2312.5 ml Output Urine Total 2950 ml General: Alert, Oriented X3 Lungs: Clear to Auscultation, Normal Air Movement Heart: Regular Rate, No Murmurs Abdomen: Normal Bowel Sounds, Soft, No Tenderness, No Masses Extremities: No Edema, No Tenderness/Swelling Skin: No Rashes Neuro: Normal Speech, Sensation Intact Results/Procedures Lab Laboratory Tests 10/02/21 17:05: Sodium Level 139, Potassium Level 4.1, Chloride Level 113H, Carbon Dioxide Level 15L, Anion Gap 11, Blood Urea Nitrogen 26H, Creatinine 1.88H, Estimat Glomerular Filtration Rate 42, BUN/Creatinine Ratio 14, Glucose Level 148H, Lactic Acid Level 0.76, Calcium Level 8.0L, Magnesium Level 1.7, Lactate Dehydrogenase 230H, Lipase 18 10/02/21 20:05: Glucometer 179H 10/03/21 05:14: Sodium Level 139, Potassium Level 4.3, Chloride Level 112H, Carbon Dioxide Level 15L, Anion Gap 12, Blood Urea Nitrogen 28H, Creatinine 2.01H, Estimat Glomerular Filtration Rate 39, BUN/Creatinine Ratio 14, Glucose Level 211H, Calcium Level 8.2L, Magnesium Level 1.8, White Blood Count 7.0, Red Blood Count 4.45, Hemoglobin 12.8L, Hematocrit 38L, Mean Corpuscular Volume 86, Mean Corpuscular Hemoglobin 29, Mean Corpuscular Hemoglobin Concent 34, Red Cell Distribution Width 12.5, Platelet Count 172, Mean Platelet Volume 10.2, Immature Granulocyte % (Auto) 0, Neutrophils (%) (Auto) 74, Lymphocytes (%) (Auto) 18, Monocytes (%) (Auto) 7, Eosinophils (%) (Auto) 0, Basophils (%) (Auto) 0, Neutrophils # (Auto) 5.2, Lymphocytes # (Auto) 1.2, Monocytes # (Auto) 0.5, Eosinophils # (Auto) 0.0, Basophils # (Auto) 0.0, Immature Granulocyte # (Auto) 0.0, Corrected Calcium 9.2, Phosphorus Level 4.4, Total Bilirubin 0.3, Aspartate Amino Transf (AST/SGOT ) 19, Alanine Aminotransferase (ALT/SGPT) 11, Alkaline Phosphatase 99, Total Protein 5.5L, Albumin 2.8L, Beta-Hydroxybutyrate (Chem panel) 1.18H 10/03/21 10:28: Glucometer 149H 10/03/21 14:53: Glucometer 163H Microbiology 10/02/21 Throat Culture - Preliminary, Resulted No Beta Strep isolated 10/02/21 Blood Culture - Preliminary, Resulted No growth 10/01/21 Urine Culture - Final, Complete >=3 Gram Positive Isolates Assessment/Plan Assessment/Plan (1) Type 1 diabetes mellitus with hyperosmolar hyperglycemic state (HHS) Status: Acute Assessment & Plan: - Patient on Insulin gtts, will transition to sub cutaneous insulin, advance diet as tolerated 10/03: Continue SSI (2) YANELI (acute kidney injury) Status: Acute Assessment & Plan: - Continue IVFs and monitor kidney function 10/02: Unable to find chart at [facility] [place] to get baseline Cr, Cr trending down, will continue to monitor and renally dose medications (3) Fever and chills Status: Acute Assessment & Plan: 10/02: Unsure of source, Respiratory viral panel pending, new blood cultures ordered 10/03: Urine and plasma metanephrines ordered, cultures have been neg to date (4) HTN (hypertension) Status: Acute Assessment & Plan: 10/02: Started Norvasc and added PRN Hydralazine MELIA AYALA MD Oct 03, 2021 16:25
[2021-10-04] VITALS (14 sets, daily range): BP systolic 110–161; BP diastolic 62–94
[2021-10-04] MEDS: METOCLOPRAMIDE INJ 10 MG/2 ML (REGLAN) IVP SCH ×2 (00:05→05:58)
[2021-10-04] MEDS: CEFEPIME 1,000 MG/NS 50 ML IVPB IV SCH ×6 (00:05→17:16)
[2021-10-04 05:23] LABS: BASOPHILS % (AUTO) 0 % (0-10); EOSINOPHILS % (AUTO) 0 % (0-10); HEMATOCRIT 35 % (40-54); HEMOGLOBIN 11.5 g/dL (13.3-17.7); LYMPHOCYTES # (AUTO) 2.1 10^3/uL (1.0-4.0); LYMPHOCYTES % (AUTO) 28 % (12-44); MEAN CORPUSCULAR HEMOGLOBIN 29 pg (25-34); MEAN CORPUSCULAR HGB CONC 33 g/dL (32-36); MEAN CORPUSCULAR VOLUME 88 fL (80-99); MEAN PLATELET VOLUME 10.7 fL (9.0-12.2); MONOCYTES # (AUTO) 0.6 10^3/uL (0.0-1.0); MONOCYTES % (AUTO) 8 % (0-12); NEUTROPHILS # (AUTO) 4.7 10^3/uL (1.8-7.8); NEUTROPHILS % (AUTO) 63 % (42-75); PLATELET COUNT 156 10^3/uL (130-400); WHITE BLOOD COUNT 7.4 10^3/uL (4.3-11.0)
[2021-10-04 05:35] LABS: ALBUMIN 2.6 GM/DL (3.2-4.5); POTASSIUM 4.3 MMOL/L (3.6-5.0)
[2021-10-04 05:36] LABS: CALCIUM 8.1 MG/DL (8.5-10.1)
[2021-10-04 05:37] LABS: TOTAL PROTEIN 5.1 GM/DL (6.4-8.2)
[2021-10-04 05:39] LABS: BILIRUBIN,TOTAL 0.3 MG/DL (0.1-1.0)
[2021-10-04 05:41] LABS: CREATININE SERUM 2.32 MG/DL (0.60-1.30); PHOSPHORUS 3.6 MG/DL (2.3-4.7)
[2021-10-04 05:44] LABS: MAGNESIUM 1.9 MG/DL (1.6-2.4)
[2021-10-04] MEDS: inSUlin ASPART (NovoLOG) 1 UNIT/0.01 ML (CHARGE PER UNIT) SC SCH ×4 (05:48→21:15)
[2021-10-04] MEDS: amLODIPine 5 MG (NORVASC) TAB PO SCH (08:58)
[2021-10-04] MEDS: ONDANSETRON 4 MG/2 ML (SDV) Z0FRAN IVP PRN (09:09)
--- NOTE | 2021-10-04 09:53 | Progress Note - Hospitalist ---
Subjective HPI/CC On Admission Date Seen by Provider: Oct 04, 2021 Time Seen by Provider: 08:45 Subjective/Events-last exam Patient feels much much better today is eating voraciously. Continues to have a dry cough. He is eating and drinking well now. Serology came up for parainfluenza 2 positivity Focused Exam Lactate Level 10/02/21 17:05: Lactic Acid Level 0.76 Objective Exam Vital Signs Vital Signs Date Time Temp Pulse Resp B/P (MAP) Pulse Ox O2 Delivery O2 Flow Rate FiO2 10/04/21 09:00 93 13 134/83 (100) 100 Room Air 10/04/21 07:59 37.8 Capillary Refill : Less Than 3 Seconds General Appearance: No Apparent Distress HEENT: Normal ENT Inspection, Pharynx Normal Neck: Normal Inspection, Non Tender, Supple Respiratory: Lungs Clear, Normal Breath Sounds, No Accessory Muscle Use, No Respiratory Distress Cardiovascular: Regular Rate, Rhythm, No Gallop, No Murmur Gastrointestinal: Non Tender, Soft Back: Normal Inspection, No CVA Tenderness Extremity: Normal Capillary Refill, Non Tender, No Calf Tenderness, No Pedal Edema Neurologic/Psychiatric: Alert, Oriented x3, No Motor/Sensory Deficits, Normal Mood/Affect Skin: Normal Color, Warm/Dry Results/Procedures Lab Laboratory Tests 10/04/21 04:25 Patient resulted labs reviewed. Assessment/Plan Assessment and Plan Assess & Plan/Chief Complaint Left lower lobe infiltrate on cefepime Parainfluenza 2 by serology Nephrotic syndrome most likely secondary to diabetes Type 1 diabetes 14 years Hypertension improved would probably change from a beta-mohamud to an BRENDA inhibitor considering the nephrotic syndrome Plan to transfer on the floor Hep-Lock IV fluids consider nephrology consult as an outpatient Critical Care Critically Ill Patient Diagnosis/Problems Diagnosis/Problems (1) Pneumonia due to parainfluenza virus (2) Acute viral syndrome Status: Acute (3) Nephrotic syndrome due to type 1 diabetes mellitus Status: Acute (4) Type 1 diabetes mellitus with hyperosmolar hyperglycemic state (HHS) Status: Acute (5) HTN (hypertension) Status: Acute KORIN VANEGAS MD Oct 04, 2021 09:53
--- NOTE | 2021-10-04 09:54 | Tele-ICU Progress Note ---
Subjective Date Seen by a Provider: Oct 04, 2021 Time Seen by a Provider: 09:53 Subjective/Events-last exam Patient today is feeling much better. He is afebrile. His viral screen came positive for parainfluenza. He has a left lower lobe infiltrate. CT of the abdomen was done but not particularly evaluated the adrenal glands. His blood pressure is controlled. Today he is a started on enalapril which is good for the diabetic kidney but he already getting acute kidney injury and I feel this may not be the right time to start on BRENDA inhibitor. I would recommend hydration and to avoid nephrogenic toxins. He is sitting in the chair and eating breakfast without any trouble. Review of Systems ros per attending physician Sepsis Event Evaluation Height, Weight, BMI Height: '" Weight: lbs. oz. kg; 28.76 BMI Method: Focused Exam Lactate Level 10/02/21 17:05: Lactic Acid Level 0.76 Exam Exam Patient acknowledged, consented, and participated in this virtual visit which was conducted using real time audio/video Vital Signs Date Time Temp Pulse Resp B/P (MAP) Pulse Ox O2 Delivery O2 Flow Rate FiO2 10/04/21 09:00 93 13 134/83 (100) 100 Room Air 10/04/21 08:00 87 17 128/62 (84) 96 Room Air 10/04/21 07:59 37.8 10/04/21 07:00 90 10/04/21 07:00 89 17 143/94 (111) 96 Room Air 10/04/21 06:00 97 21 126/93 (103) 98 Room Air 10/04/21 05:00 92 22 130/83 (98) 95 Room Air 10/04/21 04:00 90 17 128/82 (96) 95 Room Air 10/04/21 04:00 Room Air 10/04/21 03:00 89 15 127/83 (95) 95 Room Air 10/04/21 02:00 88 16 128/73 (91) 96 Room Air 10/04/21 01:00 90 10/04/21 01:00 90 19 118/68 (85) 94 Room Air 10/04/21 00:00 92 17 142/88 (106) 97 Room Air 10/04/21 00:00 Room Air 10/03/21 23:35 37.2 10/03/21 23:00 89 18 104/73 (83) 97 Room Air 10/03/21 22:00 92 18 108/71 (83) 96 Room Air 10/03/21 21:00 92 20 132/86 (101) 96 Room Air 10/03/21 20:00 100 15 113/80 (91) 98 Room Air 10/03/21 20:00 Room Air 10/03/21 20:00 37.3 10/03/21 19:00 98 18 134/85 (101) 97 Room Air 10/03/21 19:00 100 10/03/21 18:00 101 25 143/87 (105) 97 Room Air 10/03/21 17:00 103 18 140/96 (111) 96 Room Air 10/03/21 16:17 37.4 10/03/21 16:00 105 15 142/91 (108) 99 Room Air 10/03/21 15:46 Room Air 10/03/21 15:00 106 20 105/70 (82) 95 Room Air 10/03/21 14:00 101 19 129/75 (93) 93 Room Air 10/03/21 13:00 105 19 134/84 (101) 92 Room Air 10/03/21 12:59 106 10/03/21 12:00 115 21 91 Room Air 10/03/21 12:00 Room Air 10/03/21 12:00 37.5 10/03/21 11:19 37.3 10/03/21 11:00 120 19 160/104 (122) 91 Room Air 10/03/21 10:00 113 21 165/93 (118) 91 Room Air I & O 10/04/21 07:00 Intake Total 1550 ml Output Total 3750 ml Balance -2200 ml Height & Weight Height: '" Weight: lbs. oz. kg; 28.76 BMI Method: General Appearance: No Apparent Distress HEENT: Normal ENT Inspection, Pharynx Normal Neck: Normal Inspection, Non Tender, Supple Respiratory: Lungs Clear, Normal Breath Sounds, No Accessory Muscle Use, No Respiratory Distress Cardiovascular: Regular Rate, Rhythm, No Gallop, No Murmur Capillary Refill: Less Than 3 Seconds Gastrointestinal: normal bowel sounds, non tender, soft Extremity: Normal Capillary Refill, Non Tender, No Calf Tenderness, No Pedal Edema Neurologic/Psychiatric: Alert, Oriented x3, No Motor/Sensory Deficits, Normal Mood/Affect Skin: Normal Color, Warm/Dry Other comments PE per attending Results Lab Laboratory Tests 10/02/21 12:35 10/02/21 17:05 10/03/21 05:14 10/04/21 04:25 Assessment/Plan Assessment/Plan 1. Hyperosmolar nonketotic diabetes mellitus. Improving. 2. Fever could be due to LLL pneumonia and viral infection 3. Uncontrolled hypertension, today improved with corvedolol 4. worsening Kidney injury Recommendations 1. We will continue IV antibiotics and insulin per primary care physician 2. Suggest avoid Nephrotoxins 3. 4. Echocardiogram will be done 5. Urine and plasma metanephrine will be ordered. 6. suggest to get 24 hr urinry protein to see if patient as nephrotic range protienurria Critical Care: Critically Ill Patient Time spent with patient (mins): 25 KAMRON NAVARRO MD Oct 04, 2021 09:54
[2021-10-04] MEDS: ENALAPRIL 5 MG (VASOTEC) TAB PO SCH (10:52)
[2021-10-04] MEDS: ENOXAPARIN 40 MG/0.4 ML (LOVENOX) SYR SQ SCH (15:12)
[2021-10-05] VITALS (8 sets, daily range): BP systolic 137–166; BP diastolic 74–96
[2021-10-05] MEDS: CEFEPIME 1,000 MG/NS 50 ML IVPB IV SCH ×8 (00:01→23:32)
[2021-10-05] MEDS: ACETAMINOPHEN 325 MG TABLET PO PRN (00:11)
[2021-10-05] MEDS: inSUlin ASPART (NovoLOG) 1 UNIT/0.01 ML (CHARGE PER UNIT) SC SCH ×4 (05:26→20:31)
[2021-10-05] MEDS: ENALAPRIL 5 MG (VASOTEC) TAB PO SCH ×2 (09:14→11:30)
[2021-10-05] MEDS: amLODIPine 5 MG (NORVASC) TAB PO SCH (09:14)
[2021-10-05] MEDS: ONDANSETRON 4 MG/2 ML (SDV) Z0FRAN IVP PRN (09:19)
[2021-10-05] MEDS ORDERED: FAMOTIDINE 20 MG (PEPCID) TABLET PO SCH (11:30)
--- NOTE | 2021-10-05 11:30 | Progress Note - Hospitalist ---
Subjective HPI/CC On Admission Date Seen by Provider: Oct 05, 2021 Time Seen by Provider: 10:45 Subjective/Events-last exam Patient notes that he had had some abdominal discomfort and nausea this morning. He says that he threw up but his girlfriend said he did not. Otherwise he says he feels a lot better. Review of Systems Pulmonary: Cough Gastrointestinal: Nausea, Vomiting Focused Exam Lactate Level 10/02/21 17:05: Lactic Acid Level 0.76 Objective Exam Vital Signs Vital Signs Date Time Temp Pulse Resp B/P (MAP) Pulse Ox O2 Delivery O2 Flow Rate FiO2 10/05/21 11:50 36.7 94 20 137/84 (101) 98 Room Air Capillary Refill : Less Than 3 Seconds General Appearance: No Apparent Distress, WD/WN HEENT: Normal ENT Inspection Neck: Full Range of Motion, Non Tender, Supple Respiratory: Chest Non Tender, Lungs Clear, Normal Breath Sounds, No Accessory Muscle Use, No Respiratory Distress Cardiovascular: Regular Rate, Rhythm, No Gallop, No JVD, No Murmur Gastrointestinal: Normal Bowel Sounds, Non Tender, Soft Extremity: Normal Capillary Refill, Non Tender Neurologic/Psychiatric: Alert, Oriented x3, No Motor/Sensory Deficits, Normal Mood/Affect Skin: Normal Color, Warm/Dry Results/Procedures Lab Patient resulted labs reviewed. Assessment/Plan Assessment and Plan Assess & Plan/Chief Complaint Left lower lobe infiltrate on cefepime Parainfluenza 2 by serology Nephrotic syndrome most likely secondary to diabetes Type 1 diabetes 14 years Hypertension improved changed from a beta-mohamud to an BRENDA inhibitor consideri ng the nephrotic syndrome-will increase Vasotec to 10 mg a day Nausea we will add Pepcid chilled and Zofran as needed consider nephrology consult as an outpatient Critical Care Critically Ill Patient Diagnosis/Problems Diagnosis/Problems (1) Pneumonia due to parainfluenza virus (2) Acute viral syndrome Status: Acute (3) Nephrotic syndrome due to type 1 diabetes mellitus Status: Acute (4) Type 1 diabetes mellitus with hyperosmolar hyperglycemic state (HHS) Status: Acute (5) HTN (hypertension) Status: Acute KORIN VANEGAS MD Oct 05, 2021 11:30
[2021-10-05] MEDS: FAMOTIDINE 20 MG (PEPCID) TABLET PO SCH (13:06)
[2021-10-05] MEDS: ENOXAPARIN 40 MG/0.4 ML (LOVENOX) SYR SQ SCH (16:42)
[2021-10-05] MEDS: BENZONATATE 100 MG (TESSALON) CAPSULE PO PRN ×2 (16:50→20:42)
[2021-10-05 20:58] LABS: BILIRUBIN,URINE NEGATIVE (NEGATIVE); CLARITY,URINE CLEAR; COLOR,URINE YELLOW; GLUCOSE, URINE (UA) 1+ (NEGATIVE); KETONES,URINE NEGATIVE (NEGATIVE); LEUKOCYTE ESTERASE ,URINE NEGATIVE (NEGATIVE); NITRITE,URINE NEGATIVE (NEGATIVE); PROTEIN,URINE 2+ (NEGATIVE)
[2021-10-05 21:05] LABS: BACTERIA,URINE NEGATIVE /HPF; WBC,URINE 0-2 /HPF
[2021-10-05 21:06] LABS: SQUAMOUS EPITHELIAL CELL,UR RARE /HPF
[2021-10-06 04:52] VITALS: BP 146/88
[2021-10-06] MEDS: inSUlin ASPART (NovoLOG) 1 UNIT/0.01 ML (CHARGE PER UNIT) SC SCH ×2 (05:04→12:20)
[2021-10-06 05:23] LABS: BASOPHILS % (AUTO) 0 % (0-10); EOSINOPHILS # (AUTO) 0.1 10^3/uL (0.0-0.3); EOSINOPHILS % (AUTO) 1 % (0-10); HEMATOCRIT 37 % (40-54); HEMOGLOBIN 12.6 g/dL (13.3-17.7); LYMPHOCYTES % (AUTO) 30 % (12-44); MEAN CORPUSCULAR HEMOGLOBIN 29 pg (25-34); MEAN CORPUSCULAR HGB CONC 34 g/dL (32-36); MEAN CORPUSCULAR VOLUME 86 fL (80-99); MEAN PLATELET VOLUME 10.2 fL (9.0-12.2); MONOCYTES # (AUTO) 0.4 10^3/uL (0.0-1.0); MONOCYTES % (AUTO) 6 % (0-12); NEUTROPHILS # (AUTO) 4.3 10^3/uL (1.8-7.8); NEUTROPHILS % (AUTO) 63 % (42-75); PLATELET COUNT 179 10^3/uL (130-400); WHITE BLOOD COUNT 6.8 10^3/uL (4.3-11.0)
[2021-10-06 05:37] LABS: ALBUMIN 2.9 GM/DL (3.2-4.5)
[2021-10-06 05:38] LABS: POTASSIUM 4.3 MMOL/L (3.6-5.0)
[2021-10-06 05:39] LABS: CALCIUM 8.3 MG/DL (8.5-10.1)
[2021-10-06 05:40] LABS: TOTAL PROTEIN 5.7 GM/DL (6.4-8.2)
[2021-10-06 05:42] LABS: BILIRUBIN,TOTAL 0.3 MG/DL (0.1-1.0)
[2021-10-06 05:44] LABS: CREATININE SERUM 1.91 MG/DL (0.60-1.30)
[2021-10-06 08:00] VITALS: BP 158/92
[2021-10-06] MEDS: FAMOTIDINE 20 MG (PEPCID) TABLET PO SCH (08:13)
[2021-10-06] MEDS: ENALAPRIL 5 MG (VASOTEC) TAB PO SCH (08:13)
[2021-10-06] MEDS: amLODIPine 5 MG (NORVASC) TAB PO SCH (08:13)
[2021-10-06] MEDS ORDERED: AMLO-250 PO (11:00)
[2021-10-06] MEDS ORDERED: CEFD300C3 PO (11:00)
[2021-10-06] MEDS ORDERED: ENLP2.5T PO (11:00)
[2021-10-06] MEDS ORDERED: BENZ100C18 PO (11:00)
--- NOTE | 2021-10-06 11:01 | Discharge Summary ---
Discharge Summary Hospital Course Was the Problem List Reviewed?: Yes Problems/Dx: (1) Pneumonia due to parainfluenza virus (2) Acute viral syndrome Status: Acute (3) Nephrotic syndrome due to type 1 diabetes mellitus Status: Acute (4) Type 1 diabetes mellitus with hyperosmolar hyperglycemic state (HHS) Status: Acute (5) HTN (hypertension) Status: Acute Hospital Course Date of Admission: Oct 04, 2021 at 12:10 Admission Diagnosis : [place] Physician/[place] [place] Date of Discharge: 10/06/21 Discharge Diagnosis: Parainfluenza pneumonia, type 1 diabetes, 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 His creatinine baseline was 2.2 and that was stable at discharge. Nephrology referral set up for nephrotic syndrome due to diabetic nephropathy. Amlodipine of 5 mg and Enalapril of 2.5 ordered at discharge. He was deemed stable for discharge. Labs and Pending Lab Test: Laboratory Tests 10/05/21 16:41: Glucometer 229H 10/05/21 20:30: Glucometer 140H 10/05/21 20:49: Urine Color YELLOW, Urine Clarity CLEAR, Urine pH 6.0, Urine Specific [place] 1.020, Urine Protein 2+H, Urine Glucose (UA) 1+H, Urine Ketones NEGATIVE, Urine Nitrite NEGATIVE, Urine Bilirubin NEGATIVE, Urine Urobilinogen 0.2, Urine Leukocyte Esterase NEGATIVE, Urine RBC (Auto) 2+H, Urine RBC 2-5H, Urine WBC 0- 2, Urine Squamous Epithelial Cells RARE, Urine Crystals NONE, Urine Bacteria NEGATIVE, Urine Casts NONE, Urine Mucus NEGATIVE, Urine Culture Indicated NO 10/06/21 05:02: Glucometer 68L 10/06/21 05:15: White Blood Count 6.8, Red Blood Count 4.29L, Hemoglobin 12.6L, Hematocrit 37L, Mean Corpuscular Volume 86, Mean Corpuscular Hemoglobin 29, Mean Corpuscular Hemoglobin Concent 34, Red Cell Distribution Width 12.3, Platelet Count 179, Mean Platelet Volume 10.2, Immature Granulocyte % (Auto) 0, Neutrophils (%) (A uto) 63, Lymphocytes (%) (Auto) 30, Monocytes (%) (Auto) 6, Eosinophils (%) (Auto) 1, Basophils (%) (Auto) 0, Neutrophils # (Auto) 4.3, Lymphocytes # (Auto) 2.0, Monocytes # (Auto) 0.4, Eosinophils # (Auto) 0.1, Basophils # (Auto) 0.0, Immature Granulocyte # (Auto) 0.0, Sodium Level 140, Potassium Level 4.3, Chloride Level 109H, Carbon Dioxide Level 21, Anion Gap 10, Blood Urea Nitrogen 29H, Creatinine 1.91H, Estimat Glomerular Filtration Rate 41, BUN/Creatinine Ratio 15, Glucose Level 131H, Calcium Level 8.3L, Corrected Calcium 9.2, Total Bilirubin 0.3, Aspartate Amino Transf (AST/SGOT) 23, Alanine Aminotransferase (ALT/SGPT) 15, Alkaline Phosphatase 94, Total Protein 5.7L, Albumin 2.9L Microbiology 10/04/21 Gram Stain - Final, Resulted 10/04/21 Sputum Culture - Preliminary, Resulted Usual upper respiratory krissy 10/02/21 Blood Culture - Preliminary, Resulted No growth 10/01/21 Urine Culture - Final, Complete >=3 Gram Positive Isolates Home Meds Active Cefdinir 300 Mg Capsule 300 Mg PO BID Enalapril Maleate 2.5 Mg Tablet 2.5 Mg PO DAILY Tessalon Perles (Benzonatate) 100 Mg Capsule 200 Mg PO TID PRN Amlodipine Besylate 5 Mg Tablet 5 Mg PO DAILY Novolog (Insulin Aspart) 100 Unit/1 Ml Susp 0 SQ AC 30 Days PATIENT TAKES PER SLIDING SCALE, UNSURE SCALE ATT Levemir (Insulin Determir) 1,000 Units/10 Ml Soln 30 Units SQ HS 30 Days Assessment/Pt Instructions PCP in 1 week Referral to nephrology Discharge Planning: <30 minutes discharge planning Discharge Instructions Discharge Diet: ADA Diet Activity as Tolerated: Yes Discharge Physical Examination Vital Signs Vital Signs Date Time Temp Pulse Resp B/P (MAP) Pulse Ox O2 Delivery O2 Flow Rate FiO2 10/06/21 08:00 36.7 78 20 158/92 (114) 96 Room Air General Appearance: No Apparent Distress, WD/WN Respiratory: Lungs Clear Cardiovascular: Regular Rate, Rhythm Allergies: Coded Allergies: No Known Drug Allergies (Unverified , 11/10/21) Discharge Summary Date of Admission Oct 04, 2021 at 12:10 Date of Discharge Discharge Date: Oct 06, 2021 Discharge Diagnosis (1) Pneumonia due to parainfluenza virus (2) Acute viral syndrome Status: Acute (3) Nephrotic syndrome due to type 1 diabetes mellitus Status: Acute (4) Type 1 diabetes mellitus with hyperosmolar hyperglycemic state (HHS) Status: Acute (5) HTN (hypertension) Status: Acute GENEVA ROTHMAN DO Oct 06, 2021 11:01
[2021-10-06] MEDS ORDERED: CEFDINIR 300 MG (OMNICEF) CAP PO ONE (11:15)
[2021-10-06 11:55] VITALS: BP 135/68
--- NOTE | 2021-10-06 13:40 | Progress Note ---
ELFEGO MADRIGAL 10/06/21 1340: Progress Note Mr. Griffiths is a 31 y/o male with a PMHx of type 1 diabetes. He initially presented to the ED on 01 October for a 3 day history of progressive chills, fever, body aches, and sore throat. He is a Azeri-speaking patient who understand a small amount of Spanish. His girlfriend serves as his clipper automatic when she is present. His blood glucose was initially 331 upon arrival but has steadily improved and was 131 as of this morning. Patient has tested positive for parainfluenza virus but reports feeling okay this morning and ready to go home. He says his appetite has increased and his stomach pain has decreased but is still present. He endorses small amounts of nausea but not vomiting. He was treated with supportive care over the last several days and has shown improvement. The plan is to discharge with oral antibiotics and a f/u for nephrotic syndrome secondary to his diabetes. TRISTA WHITE DO 10/07/21 0602: Supervisory-Addendum Brief Verification & Attestation Participated in pt care: history, MDM, physical Personally performed: exam, history, MDM, supervision of care Care discussed with: Medical Student Procedures: n/a Results interpretation: Verified all documentation Verification and Attestation of Medical Student E/M Service A medical student performed and documented this service in my presence. I reviewed and verified all information documented by the medical student and made modifications to such information, when appropriate. I personally performed the physical exam and medical decision making. Trista White Oct 07, 2021,06:02 ELFEGO MADRIGAL Oct 06, 2021 13:40 TRISTA WHITE DO Oct 07, 2021 06:02
--- NOTE | 2021-10-07 14:23 | Diagnostic Imaging Report ---
INDICATION: Fever of unknown origin. TECHNIQUE: The patient was administered 513 uCi of indium-111 tagged to the patient's white blood cells and imaging over the chest, abdomen, and pelvis as well as the bilateral thighs was performed after a 24-hour delay. FINDINGS: Normal distribution of radiotracer within the reticuloendothelial system of the liver, spleen, and bone marrow is noted. No suspicious accumulation of activity is identified to suggest an inflammatory process. IMPRESSION: Normal-appearing indium-111 white blood cell scan. Dictated by: Dictated on workstation # [id number]
--- NOTE | 2021-10-09 12:28 | Physician Query Clarification ---
PQ-Uncertain Diagnosis Admission/Discharge Admission Date: Oct 04, 2021 at 12:10 Discharge Date: Oct 06, 2021 at 15:03 Dr. White, The medical record reflects the following clinical scenario: History/Risk Factors: DM, parainfluenza pneumonia,CKD, YANELI Clinical Findings: T 39.2, P 123, R 28, lactic acid 0.80 Treatment: IV Cefepime, IV Vancomycin Question: Is viral sepsis a clinically valid diagnosis? Sepsis was documented in the ER record and consult with no further documentation in the medical record. Please document a response in Progress Note or Discharge Summary. 1. Yes, viral sepsis is a clinically valid, condition resolved. 2. No, viral sepsis, condition ruled out. 3. Other, with explanation of clinical findings. 4. Undetermined, no explanation for clinical findings. PHYSICIAN RESPONSE Diagnosis clinically valid: Yes, Conditon resolved Please remember a lack of response to the above will prompt a phone page by CDI/Coding staff. In responding to this query, please exercise your independent professional judgment. The purpose of this communication is to more accurately reflect the complexity of your patients condition. The fact that a question is asked does not imply that any particular answer is desired or expected. Thank you for your timely response to this clarification. Requestors name: Munira THIS PHYSICIAN QUERY FORM IS A PERMANENT PART OF THE MEDICAL RECORD MUNIRA SHANNON Oct 09, 2021 12:28 GENEVA WHITE DO Oct 09, 2021 12:54
== END 2021-10-06 15:03 | disposition home or self-care (01) | DRG 871 ==
LOC: ER 01:17 → ICU 04:56 → OBSVTOIN 10-04 12:10 → 4TH 10-04 12:53
PROVIDERS: ADMIT Family Medicine; ATTEND Internal Medicine
DX: A41.89 Other specified sepsis (principal); E13.00 Other specified diabetes mellitus with hyperosmolarity without nonketotic hyperglycemic-hyperosmolar coma (NKHHC); J12.2 Parainfluenza virus pneumonia; N17.9 Acute kidney failure, unspecified; E10.21 Type 1 diabetes mellitus with diabetic nephropathy; E10.22 Type 1 diabetes mellitus with diabetic chronic kidney disease; N18.30 Chronic kidney disease, stage 3 unspecified; R31.29 Other microscopic hematuria; I10 Essential (primary) hypertension; Z20.822 Contact with and (suspected) exposure to COVID-19; Z79.4 Long term (current) use of insulin
CPT/HCPCS: 36415; 71045; 74176; 78800; 80048; 80053; 80076; 81000; 82010; 82436; 82805; 82947; 83036; 83605; 83615; 83690; 83735; 83835; 84100; 84133; 84145; 84300; 85025; 85379; 85610; 85730; 86141; 86308; 87040; 87070; 87081; 87088; 87205; 87430; 87631; 87636; 93306; 94664; G0378